=== PATIENT | female | born 1945 | race Two or more races ===

== ENCOUNTER 2018-05-20 09:30 | Inpatient (IN) | payer OTHER ==
[~2018-05-20] VITALS: Ht 167.6 cm; Wt 74.4 kg
[~2018-05-20 09:30] MED LIST: ATENOLOL25 MG PO; CIPRO750 MG PO; CIPROFLOXACIN750 MG PO; CLONAZEPAM1 MG PO; COZAAR25 MG PO; DOCUSATE SODIU100 MG PO; ESTR0.624 PO; METHYLPRED4 MG/DOSE- PO; NEURONTIN PO; PERCOCET 5/3251 TAB PO; SYNTHROID50 MCG PO; ZOCOR40 MG PO
[2018-05-28] MEDS ORDERED: DOCUSATE SODIU100 MG PO (10:07)
[2018-05-28] MEDS ORDERED: CLONAZEPAM1 MG PO (10:09)
[2018-05-28] MEDS ORDERED: PERCOCET 5-3251 EACH PO (10:09)
== END 2018-05-28 13:38 | disposition home or self-care (01) | DRG 454 ==
LOC: PED 05-27 04:45 → O/R 05-27 04:45 → RECOVERY 05-27 07:00 → PED 05-27 11:04
PROVIDERS: Orthopaedic Surgery Orthopaedic Surgery of the Spine
PROC: 0RG1071 Fusion of Cervical Vertebral Joint with Autologous Tissue Substitute, Posterior Approach, Posterior Column, Open Approach (ICD-10-PCS; 2018-05-27)
PROC: 0RT30ZZ Resection of Cervical Vertebral Disc, Open Approach (ICD-10-PCS; 2018-05-27)
PROC: 07DS3ZZ Extraction of Vertebral Bone Marrow, Percutaneous Approach (ICD-10-PCS; 2018-05-27)
PROC: 0RG10A0 Fusion of Cervical Vertebral Joint with Interbody Fusion Device, Anterior Approach, Anterior Column, Open Approach (ICD-10-PCS; principal; 2018-05-27 07:00)
DX: M50.022 Cervical disc disorder at C5-C6 level with myelopathy (principal); M47.12 Other spondylosis with myelopathy, cervical region; I10 Essential (primary) hypertension; E03.8 Other specified hypothyroidism

== ENCOUNTER 2019-02-09 07:30 | Inpatient (IN) | payer OTHER ==
[~2019-02-09] VITALS: Ht 152.4 cm; Wt 74.4 kg
[~2019-02-09 07:30] MED LIST changes: +PERCOCET 5-3251 EACH PO
[2019-02-09] MEDS ORDERED: SYNTHROID50 MCG PO (10:55)
[2019-02-11] MEDS ORDERED: CLONAZEPAM1 MG PO (07:41)
[2019-02-11] MEDS ORDERED: PERCOCET 5-3251 EACH PO (07:41)
[2019-02-11] MEDS ORDERED: AMOX-CLAV 875-1 EACH PO (07:41)
[2019-02-11] MEDS ORDERED: NEURONTIN800 MG PO (07:41)
[2019-02-11] MEDS ORDERED: COLACE100 MG PO (07:41)
== END 2019-02-12 13:02 | disposition home or self-care (01) | DRG 455 ==
LOC: O/R 02-11 05:05 → SURH 02-11 05:05
PROVIDERS: ADMIT Orthopaedic Surgery Orthopaedic Surgery of the Spine
PROC: 0SG00A0 Fusion of Lumbar Vertebral Joint with Interbody Fusion Device, Anterior Approach, Anterior Column, Open Approach (ICD-10-PCS; 2019-02-11)
PROC: 0SG00J1 Fusion of Lumbar Vertebral Joint with Synthetic Substitute, Posterior Approach, Posterior Column, Open Approach (ICD-10-PCS; 2019-02-11)
PROC: 0SG00AJ Fusion of Lumbar Vertebral Joint with Interbody Fusion Device, Posterior Approach, Anterior Column, Open Approach (ICD-10-PCS; 2019-02-11)
PROC: 0ST20ZZ Resection of Lumbar Vertebral Disc, Open Approach (ICD-10-PCS; 2019-02-11)
PROC: 4A12X4Z Monitoring of Cardiac Electrical Activity, External Approach (ICD-10-PCS; 2019-02-11)
PROC: 07DS0ZZ Extraction of Vertebral Bone Marrow, Open Approach (ICD-10-PCS; principal; 2019-02-11 07:00)
DX: M47.26 Other spondylosis with radiculopathy, lumbar region (principal); M48.061 Spinal stenosis, lumbar region without neurogenic claudication; M51.16 Intervertebral disc disorders with radiculopathy, lumbar region; I10 Essential (primary) hypertension; E03.8 Other specified hypothyroidism; Z96.651 Presence of right artificial knee joint

== ENCOUNTER 2019-03-14 09:08 | Emergency (ER) | payer OTHER ==
[~2019-03-14] VITALS: Ht 167.6 cm; Wt 72.6 kg
[~2019-03-14 09:08] MED LIST changes: +AMOX-CLAV 875-1 EACH PO; +COLACE100 MG PO; +NEURONTIN800 MG PO
== END 2019-03-14 11:19 | disposition home or self-care (01) ==
LOC: ER 09:08
DX: H66.91 Otitis media, unspecified, right ear (principal)